=== PATIENT | female | born 1995 | race Caucasian/White ===

== ENCOUNTER 2017-04-06 09:27 | Emergency (ER) | payer OTHER ==
[2017-04-06] MEDS ORDERED: KETOROLAC TROMETHAMINE 30 MG/ML VIAL IM ONE (09:43)
[2017-04-06] MEDS ORDERED: ACETAMINOPHEN 500 MG TABLET PO ONE (09:44)
[2017-04-06] MEDS ORDERED: KETOROLAC TROMETHAMINE 30 MG/ML VIAL ONE (09:51)
[2017-04-06 10:08] LABS: Hematocrit 38.7 % (37.0-47.0); Hemoglobin 13.2 gm/dL (12.5-16.0); Mean Corpuscular Hemoglobin 29.7 pg (27-31); Mean Corpuscular Hgb Conc 34.1 g/dl (32-36); Mean Platelet Volume 10.7 fl (6.0-9.5); Neutrophil # 6.3 K/mm3 (1.3-6.0); Neutrophil % 78.1 % (42-75.0); Platelet Count 177 K/mm3 (150-450); Red Blood Count 4.45 M/mm3 (4.2-5.4); Red Cell Distribution Width 12.4 % (11.5-14.0); White Blood Count 8.1 K/mm3 (4.0-10.5)
[2017-04-06 10:09] LABS: Anion Gap 14.6 mmol/L (6.8-13.8); BUN/Creatinine Ratio 13.5 (9.0-21.6); Calcium * 8.8 mg/dL (7.9-10.9); Carbon Dioxide 24.1 mmol/L (24-32.6); Estimated Creat Clear 106.3; Potassium 3.7 mmol/L (3.4-4.6)
[2017-04-06 10:12] LABS: Urine Bilirubin Negative (NEGATIVE); Urine Blood Negative /ul (NEGATIVE); Urine Ketone Negative (NEGATIVE); Urine Nitrite Negative (NEGATIVE); Urine Protein Negative (NEGATIVE); Urine Specific Gravity 1.015 SP.GR. (1.005-1.010); Urine Urobilinogen Normal (NORMAL)
[2017-04-06 10:18] LABS: Monoscreen Negative (NEGATIVE)
[2017-04-06 10:20] LABS: Urine Appearance Clear; Urine Bacteria 1+; Urine Color Yellow; Urine RBC None Seen /hpf (0-5); Urine WBC 0-5 /hpf (0-5)
--- NOTE | 2017-04-06 11:09 | ERNOTE ---
Medical Problem HPI - Narrative Date of Service: 04/06/17 - General Chief Complaint: General Assessment Time Seen by Provider: 04/06/17 09:40 Source: patient Exam Limitations: no limitations - Immun/Allergies/Home Medications Immunizations: IMMUNIZATION HX Immunizations Up to Date Yes History of Influenza Vaccine No Hx Pneumococcal Vaccination No Allergies/Adverse Reactions: Allergies No Known Allergies Allergy (Verified 04/06/17 09:36) Home Medications: HOME MEDICATIONS Amox Tr/Potassium Clavulanate [Augmentin 875-125 Tablet] 875 mg PO Q12H #20 tab 04/06/17 [Last Taken Unknown] - History of Present History Narrative: Patient presents to the ED for sore throat. She relates that she became ill yesterday. This began with sore throat. She has had some nasal congestion. Mild ear fullness. Mild sinus congestion. Her main Sx is the ST. No cough or SOB, no CP. Had a fever 101 at home. No other sick contacts. Still eating and drinking. Pain moderate with swallowing. No abdominal pain. No rash. has not seen anyone else for this. Timing: constant Severity: moderate Modifying Factors - (Improves): Present: other - nothing Modifying Factors - (Worsens): Present: other - swall;owing Review of Systems - Review of Systems Constitutional: Present: fever EYE: Present: no symptoms reported ENT: Present: See HPI Respiratory: Absent: shortness of breath, cough Cardiology: Absent: chest pain Gastrointestinal/Abdominal: Absent: abdominal pain Genitourinary: Absent: dysuria Skin: Absent: rash Neurological: Absent: weakness - Patient's Past Medical History Patient History - Medical: Hypothyroidism Patient History - Cardiac/Respiratory: No pertinent hx Patient History - Cancer: No Hx of Cancer Patient History - Surgical Procedures: Other Patient History - Other: None LMP (females 10-50): this week - Family History Mother Family History - Medical: History Unknown Father Family History - Medical: History Unknown - Social History Living Situations: home Abuse History: No History of abuse Psych History: Hx of Anxiety Does anyone smoke in the home?: Yes - 10 cigarettes daily Alcohol Use: rarely Drug Use: marijuana - Immunizations Immunizations Up to Date: Yes Hx Pneumococcal Vaccination: No History of Influenza Vaccine: No Physical Exam - Physical Exam General Appearance: Present: alert, no apparent distress, other - well hydrated , non-toxic, no diostress Head Exam: Present: normal inspection, no evidence of injury Eye Exam: Normal inspection: bilateral, PERRL: bilateral Ears, Nose, Throat: Present: abnormal TM (L), pharyngeal erythema, other - No BUILDING TECH, RPA or epiglottitis. No OE.. Absent: pharyngeal swelling, tonsillar exudate, tonsillar swelling, dry mucous membranes Neck: Present: normal inspection, nontender, other - no meningeal signs Respiratory: Present: no respiratory distress, no accessory muscle use, lungs clear Cardiovascular/Chest: Present: regular rate, rhythm, normal peripheral pulses Gastrointestinal/Abdominal: Present: normal bowel sounds, nontender, nondistended, soft Back Exam: Present: no CVA tenderness Extremity Exam: Present: normal inspection Neurological Exam: Present: alert, normal mood/affect, no motor/sensory deficits , time buyer II-XII nml as tested. Absent: motor weakness Skin Exam: Present: normal color, warm/dry. Absent: skin rash ED Progress - Results and Orders Patient's Lab Results:: I have reviewed the patient's lab results. - Vital Signs Patient's Vital Signs:: I have reviewed the patient's vital signs. Vital Signs: Vital Signs 04/06/17 04/06/17 09:33 10:41 Temperature 37.6 C H Pulse Rate 110 H 93 Respiratory 17 15 Rate Blood Pressure 121/43 113/60 O2 Sat by Pulse 98 99 Oximetry - Progress/Reassessment Chief Complaint: General Assessment Progress Note-Subjective: 04/06/17 11:06 patient feeling improved. Nothign top suggest sepsis or toxicity. No sugestion of BUILDING TECH, RPA or epiglottitis. She does have left OM, will treat this. Nothing to suggest meningitis or other life threat. Departure - Departure Clinical Impression: Fever Disposition: Home self-care Condition: Stable Instructions: Fever, Adult Additional Instructions: Rest. Fluids. Tylenol, Ibuprofen. Antibiotic as directed. Return for trouble breathing or swallowing or if your condition worsens or changes in any way. Follow-up with your doctor in 3 days for a re-check. Prescriptions: Amox Tr/Potassium Clavulanate [Augmentin 875-125 Tablet] 875 mg PO Q12H #20 tab
[2017-04-06 12:39] VITALS: BP 110/61
== END 2017-04-06 11:09 | disposition home or self-care (01) ==
LOC: ER 09:27
DX: R50.9 Fever, unspecified (principal); Z57.31 Occupational exposure to environmental tobacco smoke

== ENCOUNTER 2018-12-21 00:01 | Inpatient (IN) ==
[~2018-12-21 00:01] MED LIST: ONDANSETRON 4 MG TAB.RAPDIS PO PRN; OXYTOCIN/DEXTROSE 5%-WATER 30 UNITS/500 ML BAG IV ONE; RINGER'S SOLUTION,LACTATED 1,000 ML IV ONE
[2018-12-21 01:27] LABS: Cocaine Ur Negative (NEGATIVE); Urine Barbiturate Negative (NEGATIVE); Urine Benzodiazepines Negative (NEGATIVE); Urine Opiates Negative (NEGATIVE); Urine PCP Negative (NEGATIVE); Urine THC Negative (NEGATIVE)
[2018-12-21] MEDS: DEXTROSE 5%-LACTATED RINGERS 1,000 ML IV PRN ×2 (05:42→08:06)
[2018-12-21] MEDS ORDERED: ONDANSETRON HCL/PF 2 MG/ML VIAL IV PRN (07:10)
[2018-12-21] MEDS ORDERED: NALOXONE HCL 1 MG/1 ML SYRG IV PRN (07:10)
[2018-12-21] MEDS ORDERED: BUPIVACAINE HCL/0.9 % NACL/PF 250 ML EP PRN (07:10)
[2018-12-21] MEDS ORDERED: fentaNYL CITRATE/PF 50 MCG/ML AMPUL IT SCH (07:15)
--- NOTE | 2018-12-21 07:58 | ANES ---
Post Anesthesia Discharge - Transfer of Care Transfer of Care handoff given to nurse: Yes - Anesthesia Post Op Note Anesthesia Post Op Note: Care transferred to OB RN
--- NOTE | 2018-12-21 07:58 | ANES ---
Anesthesia Pre Procedure Eval Vitals/Labs: Last Vital Signs Temp 36.6 C 12/21/18 00:30 Pulse 88 12/21/18 00:30 Resp 18 12/21/18 00:30 BP 116/71 12/21/18 00:30 Pulse Ox 99 12/21/18 00:30 HOME MEDICATIONS vitamin,calcium,edmipmli-tzbb-wnjkt acid tablet 1 tab PO DAILY 06/13/18 [Last Taken 12/20/18] levothyroxine 50 mcg tablet 50 mcg PO DAILY #30 tab 07/25/18 [Last Taken Unknown] ferrous sulfate 325 mg (65 mg iron) tablet,delayed release 325 mg PO DAILY #30 tab 10/06/18 [Last Taken 12/20/18] Allergies/Adverse Reactions: Allergies Allergy/AdvReac Type Severity Reaction Status Date / Time No Known Allergies Allergy Verified 12/21/18 00:09 - Planned Procedure Planned Procedure: INDUCTION Medication List Reviewed:: Yes Allergies Verified: Yes Medical History (Updated 10/24/18 @ 05:38 by Jamal Tabor DO) Hypothyroid (Chronic) Alcohol use complicating , first trimester (Acute) 3 beers/wk until discovered she was Tobacco abuse (Chronic) smoking <5cig/d Marijuana use (Acute) States she stopped 3wks ago Bacterial vaginitis (Acute) Anemia Onset Date: 03/25/16 2016 & 2019-with pregnancies. Hypothyroidism (acquired) Onset Date: 05/29/16 no current medication 06/13/18 Scoliosis Onset Date: Unknown Tobacco abuse Onset Date: Unknown Chlamydia Onset Date: ~2018 had in 2014 as well Surgical History (Updated 10/24/18 @ 05:38 by Jamal Tabor DO) H/O adenoidectomy Onset Date: Unknown as a child History of placement of ear tubes Onset Date: Unknown as a child Family History (Updated 06/13/18 @ 10:42 by Ml Javier RN) Aunt Hypertension Diabetes great maternal aunt Father Hypertension Grandmother Hypertension maternal Grandmother Diabetes paternal Ovarian cancer Maternal Mother Ulcerative colitis Uncle Crohn's disease - Family Anesthesia History Family History:: no untoward family reactions to anesthesia - Airway/Neck/Teeth Within Normal Limits:: Yes Teeth Condition: intact Neck Exam: full range of motion Mallampatti Score: 1 Thyromental (T-M) distance: > 6 cm Mandibulo Hyoid distance: > 3 cm - Respiratory Smoking Status: Current every day smoker Discussed smoking cessation including day of surgery: Yes Sleep Apnea currently treated: No Sleep Apnea by current assessment: No - Cardiovascular Tolerate Activity: Good - Anesthesia Assessment and Plan ASA Class: PS, II, E Anesthesia Type Plan: Epidural
--- NOTE | 2018-12-21 07:59 | ANES ---
Post Anesthesia Assessment - Vital Signs Vitals: Last Vital Signs Temp 36.6 C 12/21/18 00:30 Pulse 88 12/21/18 00:30 Resp 18 12/21/18 00:30 BP 116/71 12/21/18 00:30 Pulse Ox 99 12/21/18 00:30 Airway Patency: Normal - Mental Status Level Of Consciousness: Awake - Pain Level Pain Score: 1 - N/V Assessment Nausea/Vomiting Presence: None Dehydration:: No
--- NOTE | 2018-12-21 08:00 | ANES ---
Anesthesia Procedure Note Procedure Note: ANESTHESIA PROCEDURE NOTE Date of Procedure: 12/21/2018 Time of procedure: . Performed by: Haroon Hyde CRNA [facility] Profiler: None. Preprocedure diagnosis: Active labor. Post procedure diagnosis: Same. Procedure: Insertion of labor epidural. Indications: The patient is a 23-year-old multigravid female in active labor requesting labor epidural for pain management. Findings: See below. Details of the procedure: The patient was placed in a sitting position. Back was prepped with DuraPrep. Patient was then draped in a sterile fashion. Lidocaine 1% was infiltrated to the skin and subcutaneous tissues at the level of the L3 4 interspace. The epidural space was identified using a 18-gauge Tuohy needle with xapt-cc-xkkyzihnwm technique. 20 mcg fentanyl was given intrathecally using a 27 ga. spinal needle. Epidural catheter was inserted without difficulty. Negative test dose was elicited using 3 mL of 2% preservative-free lidocaine plus epinephrine 1 200,000. The epidural catheter was then taped and secured in place. EBL: Minimal. Fluids: N/A. Specimen: N/A. Post procedure condition: The patient tolerated the procedure well. No complications were noted. Thank you for this consultation. Maradiaga CRNA
--- NOTE | 2018-12-21 09:17 | HP ---
Chief Complaint - Chief Complaint Date of Service: 12/21/18 Time of Service: 09:17 Chief Complaint: induction of labor History of Present Illness: 23 yo at 39 2/7 weeks admitted for induction of labor due to oligohydramnios and grade III placenta. This complicated by anemia, hypothyroid - poor compliance taking meds, tobacco, alcohol, and marjiuana use. Rh positive Rubella immune GBS negative Medical History (Updated 12/21/18 @ 11:56 by Veena Sethi RN) Hypothyroid (Chronic) Alcohol use complicating , first trimester (Acute) 3 beers/wk until discovered she was Tobacco abuse (Chronic) smoking <5cig/d Marijuana use (Acute) States she stopped 3wks ago Bacterial vaginitis (Acute) Anemia Onset Date: 03/25/16 2016 & 2019-with pregnancies. Hypothyroidism (acquired) Onset Date: 05/29/16 no current medication 06/13/18 Scoliosis Onset Date: Unknown Tobacco abuse Onset Date: Unknown Chlamydia Onset Date: ~2018 had in 2014 as well Surgical History: Surgical History (Updated 10/24/18 @ 05:38 by Jamal Tabor DO) H/O adenoidectomy Onset Date: Unknown as a child History of placement of ear tubes Onset Date: Unknown as a child Family History: Family History (Updated 06/13/18 @ 10:42 by Ml Javier RN) Aunt Hypertension Diabetes great maternal aunt Father Hypertension Grandmother Hypertension maternal Grandmother Diabetes paternal Ovarian cancer Maternal Mother Ulcerative colitis Uncle Crohn's disease Social History: Preferred Language Lithuanian Smoking Status Current every day smoker Abuse History No History of abuse Psych History Hx of Anxiety (Last Updated 12/20/18 @ 14:18 by Jamal Tabor DO) No Social History Section defined Review Of Systems (GEN) - Review of Systems Generalized/Overall Review: Present: No Symptoms Reported EENTM: Present: No Symptoms Reported Respiratory: Present: No Symptoms Reported Cardiac: Present: No Symptoms Reported Abdominal: Present: No Symptoms Reported Genitourinary: Present: No Symptoms Reported Musculoskeletal: Present: No Symptoms Reported Neurological: Present: No Symptoms Reported Skin: Present: No Symptoms Reported Endocrine: Present: No Symptoms Reported Immunizations: IMMUNIZATION HX Immunizations Up to Date Yes History of Influenza Vaccine No Hx Pneumococcal Vaccination No Allergies/Adverse Reactions: Allergies Allergy/AdvReac Type Severity Reaction Status Date / Time No Known Allergies Allergy Verified 12/21/18 00:09 Home Medications: HOME MEDICATIONS vitamin,calcium,gxiuenhz-cdum-japfn acid tablet 1 tab PO DAILY 06/13/18 [Last Taken 12/20/18] levothyroxine 50 mcg tablet 50 mcg PO DAILY #30 tab 07/25/18 [Last Taken Unknown] ferrous sulfate 325 mg (65 mg iron) tablet,delayed release 325 mg PO DAILY #30 tab 10/06/18 [Last Taken 12/20/18] Exam - Exam Vital Signs: Vital Signs - Last Taken Temp 36.6 C 12/21/18 00:30 Pulse 88 12/21/18 00:30 Resp 18 12/21/18 00:30 BP 116/71 12/21/18 00:30 Pulse Ox 99 12/21/18 00:30 Constitutional: Present: Alert, Oriented x3, Cooperative, No distress ENT Exam: Present: hearing grossly normal Breasts: Present: Exam deferred Respiratory: Present: lungs clear, no respiratory distress Cardiovascular/Chest: Present: normal peripheral pulses, regular rate, rhythm, no edema Abdomen: Present: soft, nontender, other - gravid /Rectal: Present: Other - cervix 1-2/30/-2 Extremity: Present: non-tender, no pedal edema, no calf tenderness Skin Exam: Present: normal color, warm/dry, no cyanosis Lymphatic: Present: no adenopathy Neurologic: Present: alert, normal mood/affect, oriented x 3 Appearance: Present: appropriate appearance, appropriate insight Eye contact: Present: cooperative, good eye contact Thoughts: Present: normal thought pattern Diagnostic Studies: Abnormal Lab Results 12/21/18 Range/Units 00:59 TSH 4.439 H (0.358-3.74) uIU/mL Laboratory Results TSH 4.439 uIU/mL (0.358-3.74) H 12/21/18 00:59 Negative (NEGATIVE) 12/21/18 00:56 Negative (NEGATIVE) 12/21/18 00:56 Ur Phencyclidine Scrn Negative (NEGATIVE) 12/21/18 00:56 Urine Amphetamine Negative (NEGATIVE) 12/21/18 00:56 U Benzodiazepines Scrn Negative (NEGATIVE) 12/21/18 00:56 Negative (NEGATIVE) 12/21/18 00:56 Negative (NEGATIVE) 12/21/18 00:56 NST reactive IRISH 5.11cm Assessment/Plan - Assessment/Plan (1) Encounter for induction of labor Assessment: Admit for pitocin induction of labor. Epidural PRN. Problem: Acute (2) Oligohydramnios in third trimester Problem: Acute Qualifiers: Fetus number: single or unspecified fetus Qualified Code(s): O41.03X0 - Oligohydramnios, third trimester, not applicable or unspecified (3) Hypothyroid Problem: Chronic Qualifiers: Hypothyroidism type: acquired Qualified Code(s): E03.9 - Hypothyroidism, unspecified (4) Alcohol use complicating , first trimester Problem: Resolved (5) Tobacco abuse Problem: Chronic (6) Marijuana use Problem: Resolved
--- NOTE | 2018-12-21 09:19 | PN ---
Progess Note - Interim Date: 12/21/18 Time: 09:17 Narrative: 12/21/18 09:17 Patient comfortable with epidural Vital signs stable. Pitocin at 6 mu/min. FHT: 140 baseline, good accelerations and npda-oq-umui variability with occasional variable deceleration Contractions q 2-3 min Cervix: 7/70/-2, AROM-clear Impression: Intrauterine at 39-2/7 weeks induction of labor for oligohydramnios with grade 3 placenta. Plan: Anticipate normal spontaneous vaginal delivery soon
--- NOTE | 2018-12-21 11:10 | OR ---
Operative Report - Dictated Report Narrative: Spontaneous vaginal delivery of a vigorously crying viable female at 1055 on 12/21/2018 with Apgars 9 and 9, weighing 2714 g in FAMILIA position. Cord clamping delayed approximately 1 minute Placenta delivered complete, intact, with three vessel cord Estimated blood loss: 100 mL Anesthesia: epidural Lacerations: None
[2018-12-21] MEDS ORDERED: oxyCODONE HCL/ACETAMINOPHEN 1 TAB TABLET PO PRN (11:13)
[2018-12-21] MEDS ORDERED: SENNOSIDES 8.6 MG TABLET PO PRN (11:13)
[2018-12-21] MEDS ORDERED: OXYTOCIN/DEXTROSE 5%-WATER 30 UNITS/500 ML BAG IV ONE (11:13)
[2018-12-21] MEDS ORDERED: BISACODYL 10 MG SUPP.RECT RC PRN (11:13)
[2018-12-21] MEDS ORDERED: GLYCERIN/WITCH HAZEL LEAF 40 APPL BOX TP PRN (11:13)
[2018-12-21] MEDS ORDERED: HYDROCORTISONE 30 APPL TUBE TP PRN (11:13)
[2018-12-21] MEDS ORDERED: BENZOCAINE/MENTHOL 81 SPRAY CAN TP PRN (11:13)
[2018-12-21] MEDS: LEVOTHYROXINE SODIUM 50 MCG TABLET PO SCH (13:37)
[2018-12-21] MEDS: oxyCODONE HCL/ACETAMINOPHEN 1 TAB TABLET PO PRN ×3 (14:10→22:01)
[2018-12-21] MEDS: IBUPROFEN 800 MG TABLET PO PRN (18:46)
--- NOTE | 2018-12-21 19:07 | PN ---
Progess Note - Interim Date: 12/21/18 Time: 19:07 History for MU Definition: * The number of deliveries resulting in a live the patient experienced prior to current hospitalization * The previous delivery of live twins or any live multiple gestation is considered one live event. *If primagravida or nulliparous is documented select zero for the number of previous live births. Live Events: 1
[2018-12-21] MEDS: DOCUSATE SODIUM 100 MG CAPSULE PO SCH (22:02)
[2018-12-22] MEDS: oxyCODONE HCL/ACETAMINOPHEN 1 TAB TABLET PO PRN ×5 (04:08→21:52)
[2018-12-22] MEDS: IBUPROFEN 800 MG TABLET PO PRN ×2 (04:08→11:57)
[2018-12-22] MEDS: DOCUSATE SODIUM 100 MG CAPSULE PO SCH ×3 (07:09→21:05)
[2018-12-22] MEDS: LEVOTHYROXINE SODIUM 50 MCG TABLET PO SCH ×2 (07:22→10:06)
--- NOTE | 2018-12-22 10:46 | PN ---
Subjective - Date and Time Seen Date: 12/22/18 Time: 10:45 Objective - Vitals Vitals: Last Vital Signs Temp 36.5 C 12/22/18 06:24 Pulse 89 12/22/18 06:24 Resp 16 12/22/18 06:24 BP 107/67 12/22/18 06:24 Pulse Ox 97 12/22/18 06:24 Patient denies complaints. Lochia wnl Abdomen - soft, nontender Uterus - firm, at umbilicus - 1 No calf tenderness Impression: day #1 - s/p spontaneous vaginal delivery. Plan: Continue routine care Cauti Physician Documentation - Urinary Catheter Management Urethral (Mir) Date of Insertion: 12/21/18 Time of Insertion: 08:33 Assessment/Plan - Problems/Diagnosis (1) Encounter for induction of labor Problem: Acute (2) Oligohydramnios in third trimester Problem: Acute Qualifiers: Fetus number: single or unspecified fetus Qualified Code(s): O41.03X0 - Oligohydramnios, third trimester, not applicable or unspecified (3) Hypothyroid Problem: Chronic Qualifiers: Hypothyroidism type: acquired Qualified Code(s): E03.9 - Hypothyroidism, unspecified (4) Alcohol use complicating , first trimester Problem: Resolved (5) Tobacco abuse Problem: Chronic (6) Marijuana use Problem: Resolved
[2018-12-22] MEDS: PRENATAL VITS96/IRON FUM/FOLIC 1 TAB TABLET PO SCH (11:59)
[2018-12-22] MEDS: FERROUS SULFATE 325 MG TABLET PO SCH (11:59)
[2018-12-23] MEDS: LEVOTHYROXINE SODIUM 50 MCG TABLET PO SCH (10:03)
[2018-12-23] MEDS: PRENATAL VITS96/IRON FUM/FOLIC 1 TAB TABLET PO SCH (10:03)
[2018-12-23] MEDS: DOCUSATE SODIUM 100 MG CAPSULE PO SCH (10:03)
[2018-12-23] MEDS: FERROUS SULFATE 325 MG TABLET PO SCH (10:03)
[2018-12-23] MEDS: IBUPROFEN 800 MG TABLET PO PRN (10:07)
[2018-12-23] MEDS: oxyCODONE HCL/ACETAMINOPHEN 1 TAB TABLET PO PRN (10:08)
--- NOTE | 2018-12-23 11:27 | PN ---
Subjective - Date and Time Seen Date: 12/23/18 Time: 11:26 Objective - Vitals Vitals: Last Vital Signs Temp 36.8 C 12/23/18 00:38 Pulse 94 12/23/18 00:38 Resp 16 12/23/18 00:38 BP 119/72 12/23/18 00:38 Pulse Ox 96 12/23/18 00:38 Patient denies complaints. Bottle feeding Lochia wnl Abdomen - soft, nontender Uterus - firm, at umbilicus - 2 No calf tenderness Impression: day #2 - s/p spontaneous vaginal delivery. Plan: Routine discharge instructions. Encouraged to not start back smoking. Cauti Physician Documentation - Urinary Catheter Management Urethral (Mir) Date of Insertion: 12/21/18 Time of Insertion: 08:33 Assessment/Plan - Problems/Diagnosis (1) Encounter for induction of labor Problem: Acute (2) Oligohydramnios in third trimester Problem: Acute Qualifiers: Fetus number: single or unspecified fetus Qualified Code(s): O41.03X0 - Oligohydramnios, third trimester, not applicable or unspecified (3) Hypothyroid Problem: Chronic Qualifiers: Hypothyroidism type: acquired Qualified Code(s): E03.9 - Hypothyroidism, unspecified (4) Alcohol use complicating , first trimester Problem: Resolved (5) Tobacco abuse Problem: Chronic (6) Marijuana use Problem: Resolved
[2018-12-23 12:12] VITALS: BP 114/66
== END 2018-12-23 14:30 | disposition home or self-care (01) | DRG 806 ==
LOC: OB 00:01 → MS 12-22 12:34
PROVIDERS: ADMIT Obstetrics & Gynecology; ATTEND Obstetrics & Gynecology
CPT/HCPCS: 36415; 59025; 80307; 84443; 88307